=== PATIENT | female | born 1950 | race Asian ===

== ENCOUNTER 2016-12-04 13:43 | Outpatient (CLI) | payer OTHER, BC | END 2016-12-04 21:44 | disposition home or self-care (01) | LOC: LABW 13:43 | DX: Z86.010 Personal history of colon polyps (principal) | CPT/HCPCS: 82272 ==

== ENCOUNTER 2017-04-20 13:40 | Outpatient (CLI) | payer OTHER, BC ==
[2017-04-20 15:08] LABS: PLATELET COUNT 245 K/uL (152-353)
[2017-04-20 15:31] LABS: SODIUM 137 mmol/L (136-145)
== END 2017-04-20 19:31 | disposition home or self-care (01) ==
LOC: LAB 13:40
PROVIDERS: Nurse Practitioner Family
DX: Z00.00 Encounter for general adult medical examination without abnormal findings (principal); I48.91 Unspecified atrial fibrillation; Z13.820 Encounter for screening for osteoporosis; G47.09 Other insomnia; E78.4 Other hyperlipidemia; I10 Essential (primary) hypertension; E11.9 Type 2 diabetes mellitus without complications; E55.9 Vitamin D deficiency, unspecified
CPT/HCPCS: 80053; 80061; 82306; 82607; 83036; 84436; 84443; 85027

== ENCOUNTER 2017-04-23 09:47 | Outpatient (CLI) | payer OTHER, BC | END 2017-04-23 11:00 | disposition home or self-care (01) | LOC: MAMMO 09:47 | DX: Z12.31 Encounter for screening mammogram for malignant neoplasm of breast (principal); M85.89 Other specified disorders of bone density and structure, multiple sites; Z13.820 Encounter for screening for osteoporosis | CPT/HCPCS: G0202-TC ==

== ENCOUNTER 2017-12-14 13:55 | Outpatient (CLI) | payer OTHER, BC ==
[2017-12-14 16:16] LABS: PLATELET COUNT 279 K/uL (152-353)
[2017-12-14 17:25] LABS: POTASSIUM 3.6 mmol/L (3.6-5.2)
== END 2017-12-14 19:06 | disposition home or self-care (01) ==
LOC: LABW 13:55
PROVIDERS: Internal Medicine Gastroenterology
DX: K64.0 First degree hemorrhoids (principal); I10 Essential (primary) hypertension; E78.4 Other hyperlipidemia; F41.8 Other specified anxiety disorders; I48.91 Unspecified atrial fibrillation; E11.9 Type 2 diabetes mellitus without complications
CPT/HCPCS: 80053; 80061; 82272; 83036; 84436; 84443; 85027

== ENCOUNTER 2019-09-11 12:26 | Outpatient (CLI) | payer OTHER, BC ==
[2019-09-11 12:45] LABS: PLATELET COUNT 285 K/uL (152-353)
[2019-09-11 12:57] LABS: POTASSIUM 3.7 mmol/L (3.6-5.2)
== END 2019-09-11 19:59 | disposition home or self-care (01) ==
LOC: LABW 12:26
PROVIDERS: Internal Medicine Gastroenterology
DX: E11.9 Type 2 diabetes mellitus without complications (principal); D64.89 Other specified anemias
CPT/HCPCS: 36415; 80053; 80061; 81000; 82272; 83036; 85027

== ENCOUNTER 2019-11-08 11:03 | Outpatient (CLI) | payer OTHER, BC | END 2019-11-08 19:34 | disposition home or self-care (01) | LOC: MAMMO 11:03 | DX: Z12.31 Encounter for screening mammogram for malignant neoplasm of breast (principal) ==

== ENCOUNTER 2020-01-04 13:52 | Outpatient (CLI) | payer OTHER, BC ==
[2020-01-04 14:22] LABS: PLATELET COUNT 302 K/uL (152-353)
[2020-01-04 14:33] LABS: POTASSIUM 4.1 mmol/L (3.6-5.2)
== END 2020-01-04 19:49 | disposition home or self-care (01) ==
LOC: LABW 13:52
PROVIDERS: Internal Medicine
DX: Z01.818 Encounter for other preprocedural examination (principal); I10 Essential (primary) hypertension; E11.9 Type 2 diabetes mellitus without complications
CPT/HCPCS: 36415; 80048; 83036; 85027; 93005

== ENCOUNTER 2020-01-22 14:08 | Outpatient (CLI) | payer OTHER, BC | END 2020-01-22 19:22 | disposition home or self-care (01) | LOC: RAD 14:08 | DX: Z01.811 Encounter for preprocedural respiratory examination (principal) ==

== ENCOUNTER 2020-07-25 12:27 | Outpatient (CLI) | payer OTHER, BC | END 2020-07-25 21:51 | disposition home or self-care (01) | LOC: LAB 12:27 | DX: Z11.59 Encounter for screening for other viral diseases (principal); R05 Cough; R09.81 Nasal congestion | CPT/HCPCS: 87635; G2023; U0003 ==

== ENCOUNTER 2021-02-26 13:11 | Outpatient (CLI) | payer OTHER | END 2021-02-26 20:30 | disposition home or self-care (01) | LOC: MAMMO 13:11 | PROVIDERS: ATTEND Internal Medicine | DX: Z00.00 Encounter for general adult medical examination without abnormal findings (principal); Z12.31 Encounter for screening mammogram for malignant neoplasm of breast ==

== ENCOUNTER 2021-03-24 14:45 | Outpatient (CLI) | payer BC | END 2021-03-24 19:45 | disposition home or self-care (01) | LOC: LABW 14:45 | PROVIDERS: ATTEND Ophthalmology Cornea and External Diseases Specialist | DX: H16.0 Corneal ulcer (principal); R53.82 Chronic fatigue, unspecified | CPT/HCPCS: 36415; 86803; 87522 ==

== ENCOUNTER 2021-06-18 10:45 | Day surgery (SDC) | payer BC ==
[2021-06-13 11:08] LABS: PLATELET COUNT 274 K/uL (152-353)
[2021-06-13 11:20] LABS: POTASSIUM 3.6 mmol/L (3.6-5.2)
[~2021-06-18] VITALS: Ht 30.5 cm; Wt 0.5 kg
== END 2021-06-18 13:45 | disposition home or self-care (01) ==
LOC: OR 10:45
PROVIDERS: ATTEND Internal Medicine Gastroenterology
PROC: 0DB58ZZ Excision of Esophagus, Via Natural or Artificial Opening Endoscopic (ICD-10-PCS; principal; 2021-06-18)
PROC: 0DB88ZZ Excision of Small Intestine, Via Natural or Artificial Opening Endoscopic (ICD-10-PCS; 2021-06-18)
PROC: 0DB68ZZ Excision of Stomach, Via Natural or Artificial Opening Endoscopic (ICD-10-PCS; 2021-06-18)
PROC: 0D758ZZ Dilation of Esophagus, Via Natural or Artificial Opening Endoscopic (ICD-10-PCS; 2021-06-18)
DX: K22.2 Esophageal obstruction (principal); K29.50 Unspecified chronic gastritis without bleeding; R13.19 Other dysphagia; K21.00 Gastro-esophageal reflux disease with esophagitis, without bleeding; Z20.822 Contact with and (suspected) exposure to COVID-19
CPT/HCPCS: 80053; 85027; 87635; J0690; J2001; J2704; U0003

== ENCOUNTER → 2021-07-04 | Outpatient (CLI) | payer BC | LOC: OR 09:30 → LABW 10:00 → EDSTATUS 07-09 14:00 → OR 07-09 14:00 | PROVIDERS: ATTEND Internal Medicine Gastroenterology | DX: C18.9 Malignant neoplasm of colon, unspecified (principal); Z86.010 Personal history of colon polyps; Z01.812 Encounter for preprocedural laboratory examination | CPT/HCPCS: 87635; U0003 ==

== ENCOUNTER 2022-02-04 12:55 | Outpatient (CLI) | payer BC ==
[2022-02-04 13:20] LABS: PLATELET COUNT 252 K/uL (152-353)
== END 2022-02-04 19:03 | disposition home or self-care (01) ==
LOC: LABW 12:55 → RESP 12:55 → LABW 19:03
PROVIDERS: ATTEND Internal Medicine Gastroenterology
DX: Z00.00 Encounter for general adult medical examination without abnormal findings (principal); Z79.899 Other long term (current) drug therapy
CPT/HCPCS: 36415; 80053; 83036; 85027; 86038; 93005

== ENCOUNTER 2022-04-03 09:36 | Outpatient (CLI) | payer OTHER | END 2022-04-03 20:33 | disposition home or self-care (01) | LOC: MAMMO 09:36 | PROVIDERS: ATTEND Family Medicine | DX: Z12.31 Encounter for screening mammogram for malignant neoplasm of breast (principal) ==

== ENCOUNTER 2022-09-19 12:33 | Outpatient (CLI) | payer BC ==
[2022-09-19 12:56] LABS: PLATELET COUNT 277 K/uL (152-353)
[2022-09-19 13:26] LABS: POTASSIUM 3.8 mmol/L (3.6-5.2)
== END 2022-09-19 22:31 | disposition home or self-care (01) ==
LOC: LABW 12:33
PROVIDERS: ATTEND Nurse Practitioner Family
DX: L40.0 Psoriasis vulgaris (principal); Z79.899 Other long term (current) drug therapy
CPT/HCPCS: 36415; 80053; 80074; 85027; 86480

== ENCOUNTER 2023-05-23 17:39 | Emergency (ER) | payer BC ==
[~2023-05-23] VITALS: Ht 160 cm; Wt 58.1 kg
[2023-05-23 17:50] VITALS: BP 137/61; TEMP 98.7
== END 2023-05-23 19:20 | disposition home or self-care (01) ==
LOC: ED 17:39
DX: L98.8 Other specified disorders of the skin and subcutaneous tissue (principal); B95.8 Unspecified staphylococcus as the cause of diseases classified elsewhere
CPT/HCPCS: 96372; 99283; J0696

== ENCOUNTER 2023-05-23 19:25 | Outpatient (CLI) | payer BC | END 2023-05-23 21:00 | LOC: LAB 19:25 | PROVIDERS: ATTEND Nurse Practitioner Family | DX: M06.4 Inflammatory polyarthropathy (principal); R76.0 Raised antibody titer; Z68.32 Body mass index [BMI] 32.0-32.9, adult; Z79.899 Other long term (current) drug therapy | CPT/HCPCS: 81002; 87088 ==

== ENCOUNTER 2023-05-23 19:34 | Outpatient (CLI) | payer BC | END 2023-05-23 21:00 | LOC: RAD 19:34 | PROVIDERS: ATTEND Family Medicine | DX: M06.4 Inflammatory polyarthropathy (principal); R76.0 Raised antibody titer; Z68.32 Body mass index [BMI] 32.0-32.9, adult ==

== ENCOUNTER 2023-06-28 09:30 | Outpatient (CLI) | payer OTHER | END 2023-06-28 19:06 | disposition home or self-care (01) | LOC: MAMMO 09:30 | PROVIDERS: ATTEND Family Medicine | DX: Z12.31 Encounter for screening mammogram for malignant neoplasm of breast (principal) ==

== ENCOUNTER 2023-07-21 08:34 | Outpatient (CLI) | payer OTHER | END 2023-07-21 19:10 | disposition home or self-care (01) | LOC: RAD 08:34 | PROVIDERS: ATTEND Nurse Practitioner Family | DX: L05.91 Pilonidal cyst without abscess (principal); L40.9 Psoriasis, unspecified; M06.09 Rheumatoid arthritis without rheumatoid factor, multiple sites; M06.4 Inflammatory polyarthropathy; M35.05 Sjogren syndrome with inflammatory arthritis ==